=== PATIENT | male | born 1970 | race African-American/Black ===

== ENCOUNTER 2025-03-14 13:31 | Emergency (ER) | payer OTHER ==
[~2025-03-14] VITALS: Ht 170.1 cm; Wt 81.6 kg
[2025-03-14] MEDS ORDERED: Acetaminophen/Oxycodone 5 MG/325 MG TABLET PO ONE (14:30)
[2025-03-14] MEDS ORDERED: PREDNISONE20 M1 PO (15:53)
[2025-03-14] MEDS ORDERED: MELOXICAM15 MG PO (15:53)
== END 2025-03-14 16:04 | disposition home or self-care (01) ==
LOC: ED 13:31
DX: M79.632 Pain in left forearm (principal); R22.32 Localized swelling, mass and lump, left upper limb; Z98.890 Other specified postprocedural states